=== PATIENT | female | born 1955 | race Caucasian/White ===

== ENCOUNTER 2022-03-15 15:26 | Inpatient (IN) | payer OTHER ==
[2022-03-15] MEDS ORDERED: SODIUM CHLORIDE 0.9% 10ML INJ IV PRN (16:32)
[2022-03-15] MEDS ORDERED: PANTOPRAZOLE 40 MG INJ IVP ONE (16:37)
[2022-03-15] MEDS ORDERED: ONDANSETRON 4 MG/2 ML VIAL IV PRN (16:37)
[2022-03-15] MEDS: MORPHINE 2 MG/ML SYR IV PRN (18:11)
[2022-03-15 18:23] VITALS: BMI 22.6
[2022-03-15 18:25] LABS: Absolute Lymphocytes (CBC) 1.9 K/uL (0.7-4.9); Hematocrit 40.6 % (36.0-45.0); Lymphocytes % 24.8 % (15.3-44.8); MCV 86.6 fL (80-100); MPV 8.8 fL (7.6-11.3); RBC Red Blood Cell Count 4.69 M/uL (3.86-4.86)
[2022-03-15 18:40] LABS: Albumin 4.2 g/dL (3.4-5.0); Bilirubin Total 0.2 mg/dL (0.2-1.0); Magnesium 2.3 mg/dL (1.8-2.4); Potassium 3.9 mmol/L (3.5-5.1); Protein, Total 8.4 g/dL (6.4-8.2)
[2022-03-15] MEDS ORDERED: PNEUMOCOCCAL VACCINE 0.5 ML IMVAC ONE (21:00)
--- NOTE | 2022-03-15 22:08 | RAD REPORT ---
EXAM DESCRIPTION: Dc Single View03/15/2022 8:05 pm CLINICAL HISTORY: Abdominal pain COMPARISON: January 2022 FINDINGS: The lungs appear clear of acute infiltrate. The heart is normal size IMPRESSION: No acute abnormalities displayed
--- NOTE | 2022-03-15 22:27 | RAD REPORT ---
EXAM DESCRIPTION: CT - Abdomen Pelvis W Contrast - 03/15/2022 10:14 pm CLINICAL HISTORY: Abdominal pain. COMPARISON: None. TECHNIQUE: Computed axial tomography of the abdomen and pelvis was obtained. 100 cc Isovue-300 is ad ministered intravenously. Oral contrast was given. All CT scans are performed using dose optimization technique as appropriate and may include automated exposure control or mA/KV adjustment according to patient size. FINDINGS: Mild stranding adjacent to the pancreatic uncinate. Pancreas is normal size. No pseudocyst . The liver, spleen, adrenals and left kidney appear unremarkable. 2 centimeter left renal cyst. Hysterectomy. No adnexal mass. No evidence of diverticulitis IMPRESSION: These findings may indicate a mild pancreatitis
[2022-03-16] MEDS ORDERED: POTASSIUM CL SA 10 MEQ TAB PO ONE (00:07)
[2022-03-16] MEDS: MORPHINE 2 MG/ML SYR IV PRN (03:32)
--- NOTE | 2022-03-16 07:51 | RAD REPORT ---
EXAM DESCRIPTION: US - Abdomen Exam Limited - 03/16/2022 5:30 am CLINICAL HISTORY: Abdominal pain. COMPARISON: None. FINDINGS: The gallbladder wall is not thickened. A gallstone is not seen. The biliary tree is normal caliber. The liver has a normal echotexture. IMPRESSION: Unremarkable gallbladder ultrasound.
--- NOTE | 2022-03-16 08:13 | HP ---
Date of Admission: 03/15/2022 Chief Complaint: Abdominal pain. History Of Present Illness: This is a 66-year-old very pleasant female patient, came into office tojaden argueta with 1-week history of abdominal pain. Her abdominal pain is in the epigastric region and it radi ates to her back. Pain is more or less constant. No aggravating factors. She takes some Tylenol on an as needed basis and it helps her pain to some extent. On pain scale, her pain is rated at 10/10. She has some belching and nausea associated with this pain. No vomiting. No fever. No chills. N o acid reflux problem. After I evaluated her, she was admitted to the hospital for further evaluatio n and management of this problem. Review of Systems: GI: As mentioned above. All other systems reviewed and negative. Allergies: NO KNOWN ALLERGIES. Medications: Clopidogrel 75 mg daily, lisinopril/HCTZ 20/12.5 one tablet by mouth daily, nebivolol 1 0 mg daily, simvastatin 40 mg daily in the evening. Past Medical History: Significant for hypertension, hyperlipidemia, gastroesophageal reflux disease, and coronary artery disease and myocardial infarction in 2010. Significant for diverticulosis. Past Surgical History: Coronary artery stent placement in 2010, hysterectomy, and breast implant in 2008. Family History: Father , had coronary artery disease. Mother has hyperlipidemia, brother with c ancer of jaw and coronary artery disease. Social History: Prior history of smoking. Use of alcohol negative. Physical Examination: Vital Signs: When she came into office today; blood pressure 138/77, pulse 66, temperature 97.9, res piratory rate 18. Weight 124 pounds, height 62 inches. General: Awake, alert, oriented, not in distress. HEENT: Head atraumatic, normocephalic. Conjunctivae nonerythematous. Sclerae white. Mouth, no thr ush or edema noted. Ears/Nose, no mass, lesion, discharge noted. Neck: Supple. No JVD, lymph nodes, bruit, thyromegaly noted. Lungs: Bilateral good equal air entry. Clear to auscultation. No rhonchi. No rales. Heart: Normal heart sounds, no murmur or gallop. Abdomen: Soft bowel sounds normal. No guarding, rigidity, distention. No hepatosplenomegaly. No b ruit. The patient has moderate amount of tenderness in the epigastric region. No rebound tenderness . Bowel sounds normoactive. Extremities: No leg edema. No calf tenderness. Skin: No rash, ulcer, cellulitis. Lymphatics: No lymph node enlargement in neck, supraclavicular, infraclavicular region. Neuro: No focal neurological deficit. Chest: Unremarkable. External Genitalia: Deferred. Rectal: Deferred. Laboratory Data: White count 7.6, hemoglobin 13.5, platelets 269. Sodium 137, potassium 3.9, chlori de 103, bicarb 30, BUN 22, creatinine 1.29, glucose 106. Liver function tests normal. Lipase elevat ed at 976, amylase 103. Impression: 1.Acute pancreatitis. 2.Coronary artery disease. 3.Hypertension. 4.Hyperlipidemia. 5.Diverticulosis. 6.Gastroesophageal reflux disease. Plan: We will admit the patient to hospital for further evaluation and management of this problem. The patient is appropriate for inpatient and is expected to spend 2 midnights in hospital. We will g o ahead and give her clear liquid diet. Pain medication and nausea medication will be given per marbella r. DVT prophylaxis will be given with use of Lovenox. Home medications will be continued for hypert ension, hyperlipidemia, and also we will continue her anti-platelet therapy. I have ordered CT scan of abdomen with contrast and right upper quadrant abdominal ultrasound, we will follow up on those re sults. Details and plan of treatment discussed with the patient. I will see her tomorrow morning fo r followup. JANEE/ANA Voice ID: [id number]
[2022-03-16] MEDS: hydroCHLOROthiazide 12.5 MG CAP PO SCH (08:15)
[2022-03-16] MEDS: NEBIVOLOL HCL 5 MG TAB PO SCH (08:15)
[2022-03-16] MEDS: PANTOPRAZOLE 40 MG INJ IVP SCH (08:16)
[2022-03-16] MEDS: CLOPIDOGREL 75 MG TABLET PO SCH (08:17)
[2022-03-16] MEDS: lisinopriL 20 MG TAB PO SCH (08:17)
[2022-03-16] MEDS: ENOXAPARIN 30 MG/0.3 ML SQ SCH ×2 (08:23→08:28)
[2022-03-16] MEDS: Ringers Lactate 1,000 ML IV SCH (08:28)
[2022-03-16] MEDS ORDERED: HOME MED 1 EA UNK (Lisinopril/Hydrochlorothiazide [Lisinopril-Hctz 20-12.5 Mg Tab] Tablet) PO SCH (09:00)
[2022-03-16] MEDS ORDERED: ATORVASTATIN 20 MG TAB PO SCH (21:00)
[2022-03-17 02:12] VITALS: O2SAT 97
[2022-03-17] MEDS: Ringers Lactate 1,000 ML IV SCH (03:36)
[2022-03-17 05:38] LABS: Absolute Lymphocytes (CBC) 1.6 K/uL (0.7-4.9); Hematocrit 35.2 % (36.0-45.0); Lymphocytes % 30.5 % (15.3-44.8); MCV 84.2 fL (80-100); MPV 8.3 fL (7.6-11.3); RBC Red Blood Cell Count 4.18 M/uL (3.86-4.86)
[2022-03-17 05:54] LABS: Albumin 3.2 g/dL (3.4-5.0); Bilirubin Total 0.4 mg/dL (0.2-1.0); Potassium 4.5 mmol/L (3.5-5.1); Protein, Total 6.6 g/dL (6.4-8.2)
--- NOTE | 2022-03-17 06:16 | PN ---
Subjective: Patient was seen this morning for followup. She was lying in bed, not in distress. No new complaints or problems reported. She did use morphine around 3 o'clock during nighttime. This m orning, when I saw her she was asymptomatic. No nausea, no vomiting, no abdominal pain when I saw he r. Objective: Vital Signs: Reviewed. HEENT: Unremarkable. Lungs: Clear to auscultation. Heart: Heart sounds normal. Abdomen: Soft, bowel sounds normal. No guarding, rigidity, distention. No hepatosplenomegaly. No bruit. Epigastric tenderness is very minimal. Significantly better today than yesterday. Extremities: No leg edema. Laboratory Data: Lipase level is still high, but better today than yesterday. Impression: 1.Acute pancreatitis. 2.Hyperlipidemia. 3.Hypertension. 4.Coronary artery disease. Plan: We will go ahead and continue clear liquid diet. Right upper quadrant abdominal ultrasound wa s done to look for gallstone and that came back normal today, so different causes of pancreatitis wer e explained to the patient. We will get a fasting lipid profile done on her and she was instructed t hat on an outpatient basis, she will need to have a followup with bin piler and she may bene fit from ERCP type of procedure. We will repeat blood work tomorrow morning. Continue her on clear liquid diet today. Depending on her condition, we will decide about advancing diet tomorrow and possible discharge tomorrow. JANEE/MODL Voice ID: [id number] Report ID: [id number]
[2022-03-17 08:29] VITALS: BP 128/70; TEMP 98.8
[2022-03-17] MEDS: CLOPIDOGREL 75 MG TABLET PO SCH (08:55)
[2022-03-17] MEDS: NEBIVOLOL HCL 5 MG TAB PO SCH (08:55)
[2022-03-17] MEDS: lisinopriL 20 MG TAB PO SCH (08:55)
[2022-03-17] MEDS: PANTOPRAZOLE 40 MG INJ IVP SCH (08:56)
[2022-03-17] MEDS: ENOXAPARIN 30 MG/0.3 ML SQ SCH (08:56)
[2022-03-17] MEDS: hydroCHLOROthiazide 12.5 MG CAP PO SCH (08:56)
--- NOTE | 2022-03-19 05:24 | DS ---
Date of Discharge: 03/17/2022 Disposition: Discharged to go home. Physical Examination: HEENT: Unremarkable. Lungs: Clear to auscultation. Heart: Sounds normal. Abdomen: Soft. Bowel sounds normal. No guarding, rigidity, tenderness, or distention. Extremities: No leg edema. Laboratory Data: Upon admission; white count 7.6, hemoglobin 13.5, platelets 269. Today, white coun t 5.3, hemoglobin 12.4, platelets 214. Upon admission; sodium 137, potassium 3.9, chloride 103, bica rb 30, BUN 22, creatinine 1.29, glucose 106. Liver function tests unremarkable. Lipase 976. Day af ter admission, lipase was 434; and today, lipase was 284. Her triglyceride today was 193, total chol esterol 226, LDL 139, HDL 48. Today, her BUN was 10, creatinine 1.09, sodium 139, potassium 4.5, chl oride 106, bicarb 30. Chest x-ray, no acute cardiopulmonary changes. CAT scan of abdomen had shown evidence of mild pancreatitis and right upper quadrant ultrasound showed normal gallbladder. No evid ence of any gallstones. Hospital Course: This is a 66-year-old pleasant female patient, who came into office with complaints of epigastric abdominal pain radiating to her back. Please see dictated H and P for more informatio n. After patient was evaluated, she was admitted to the hospital. Pain medication morphine was star rose and initially she was kept n.p.o. Subsequently we started her on liquid diet and as she tolerate d liquid diet as well as her abdominal pain improved, we advanced her diet to soft diet today. CAT s can and ultrasound findings reviewed with her. The patient has acute pancreatitis, but there is no e vidence of any gallstones. She was advised that she should have a followup with software implementation specialist o n an outpatient basis as she will benefit from further investigation with procedures like the ERCP th at software implementation specialist can assist us with. She also needs to have a colonoscopy done, so we will refe r her to software implementation specialist on an outpatient basis. Today, she is feeling much better. Her abdomina l pain has resolved. She is tolerating diet well and she was discharged to go home in stable conditi on with following discharge medications and instructions. Discharge Diagnoses: 1.Acute pancreatitis. 2.Coronary artery disease. 3.Hypertension. 4.Hyperlipidemia. 5.Diverticulosis. 6.Gastroesophageal reflux disease. Discharge Medications And Instructions: 1.Continue all prior home medications. 2.Follow up with my office in next week. 3.Avoid fried, greasy, fatty food. 4.Avoid alcohol. JANEE/MODL Voice ID: [id number] Report ID: [id number]
== END 2022-03-17 10:55 | disposition home or self-care (01) | DRG 440 ==
LOC: 4TH 15:26
PROVIDERS: ADMIT Internal Medicine; ATTEND Internal Medicine
DX: K85.90 Acute pancreatitis without necrosis or infection, unspecified (principal); I10 Essential (primary) hypertension; E78.5 Hyperlipidemia, unspecified; K21.9 Gastro-esophageal reflux disease without esophagitis; I25.10 Atherosclerotic heart disease of native coronary artery without angina pectoris; K57.90 Diverticulosis of intestine, part unspecified, without perforation or abscess without bleeding; I25.2 Old myocardial infarction; Z95.5 Presence of coronary angioplasty implant and graft; Z90.710 Acquired absence of both cervix and uterus
CPT/HCPCS: 36415; 71045; 74177; 76705; 80053; 80061; 82150; 83690; 83735; 84132; 85025; 87811; C9113; J1650; J2270; J7120; Q9967